=== PATIENT | male | born 1965 | race Caucasian/White ===

== ENCOUNTER 2017-12-14 06:21 | Day surgery (SDC) | payer BC ==
[~2017-12-14 06:21] MED LIST: ACETAMINOPHEN 1,000 MG/100 ML BTL IV ONE; CEFAZOLIN 2 Gram 2 GM/50 ML BAG IVPB ONE; FAMOTIDINE 20MG TABLET PO ONE; MECLIZINE 25 MG TABLET PO ONE; METOCLOPRAMIDE 10 MG TABLET PO ONE
[2017-12-14] MEDS ORDERED: CEFAZOLIN 1G VIAL IM ONE (06:22)
[2017-12-14] MEDS ORDERED: **ER** KETAMINE HCL 500MG/10ML VIAL IV ONE (06:22)
[2017-12-14] MEDS ORDERED: HYDROMORPHONE HCL 2 MG/ML VIAL IV ONE (06:22)
[2017-12-14] MEDS ORDERED: PROPOFOL 10 MG/ML VIAL IV ONE (06:22)
[2017-12-14] MEDS ORDERED: BUPIVACAINE 0.5% W/EPI MPF 30 ML VIAL IVP ONE (06:22)
[2017-12-14] MEDS ORDERED: OXYCODONE/APAP 10MG-325MG TABLET PO ONE (06:22)
[2017-12-14] MEDS ORDERED: 0.9 % SODIUM CHLORIDE 10 ML VIAL IVP ONE (06:22)
[2017-12-14] MEDS ORDERED: MIDAZOLAM HCL 2MG/2ML VIAL IV ONE (06:22)
[2017-12-14] MEDS ORDERED: LIDOCAINE 2% MDV (20MG/ML) 20ML VIAL IV ONE (06:22)
[2017-12-14] MEDS ORDERED: FENTANYL PF 100MCG/2ML VIAL IV ONE (06:22)
[2017-12-14] MEDS ORDERED: LIDOCAINE 1% W/EPI 1:200,000 MPF 30ML SQ ONE (06:22)
--- NOTE | 2017-12-14 06:26 | History and Physical - [facility] ---
CHIEF COMPLAINT/HISTORY OF CHIEF COMPLAINT: This patient presents with a history of intractable post lumbar laminectomy radiculopathy. Due to the failure of therapy a spinal cord stimulator trial was conducted with Dr. Slater with 75-85% pain control. Due to the failure of therapy and the success of stimulator trial he has been referred here for permanent implant. PAST MEDICAL HISTORY: Noncontributory. PAST SURGICAL HISTORY: Lumbar spinal surgery. MEDICATIONS ON ADMISSION: List to be provided. ALLERGIES: None listed. FAMILY/PSYCHOSOCIAL HISTORY: Social history - Smoking, social alcohol and caffeine. Family history - Coronary artery disease. SYSTEMS REVIEW: The patient seems appropriate in no acute distress. The remainder of the systems review is positive for contacts and difficulty sleeping. PHYSICAL EXAMINATION: Height is 6'1", weight is 250. No vital signs. HEENT: Within normal limits. LUNGS: Clear. HEART: Regular rate and rhythm. ABDOMEN: Nontender. MUSCULOSKELETAL: Examination of the musculoskeletal system shows diffuse tenderness throughout the lumbar spine. Range of motion does seem produce pain throughout the low back and extending into the hips and legs. His motor and sensory field functionality to the lower extremities is intact. There are no obvious deficits. No assistive device required for ambulation. NEUROLOGIC: Cranial nerves are intact. IMPRESSION: LUMBAR RADICULOPATHY, ICD-10 CODE M54.16 AND M54.17. PLAN: The patient is here for implantation of permanent spinal cord stimulator. The potential risks, side effect, and complications have all been carefully reviewed and discussed. The procedure will be considered outpatient although an overnight stay will be evaluation because of the traveling distance. JOB NUMBER: [id number] MTDD
--- NOTE | 2017-12-15 16:02 | Operative Note ---
DATE OF SURGERY: 12/14/2017. PREOPERATIVE DIAGNOSIS: LUMBAR RADICULOPATHY, ICD-10 CODE M54.16 AND M54.17. POSTOPERATIVE DIAGNOSIS: LUMBAR RADICULOPATHY, ICD-10 CODE M54.16 AND M54.17. OPERATION: 1. Fluoroscopically guided epidural access left T12-L1. Placement of spinal cord stimulator lead 1, Nevro octapolar, eight-electrode lead, positioned left midline at T8, upper endplate. 2. Fluoroscopically guided epidural access left T11-12. Placement of spinal cord stimulator lead 2, Nevro octapolar, eight-electrode lead, positioned right , upper electrode mid body T9. 3. Incision, subcutaneous dissection, and anchoring of lead 1 and lead 2 to the supraspinous fascia with a Nevro locking anchor. 4. Incision, subcutaneous dissection, and creation of subcutaneous pouch at right flank for placement of generator identified as Nevro programmable rechargeable generator. 5. Tunneling between pouches. Placement of external portion of lead 1 and lead 2 into generator pouch, each lead interfaced to the generator. 6. Placement of generator pouch. Placement of leads into pouch. 7. Closure of both incisions with Stratafix suture, #2-0 suture for the fascia , and #3-0 for the subcuticular. Dermabond closure. 8. The patient was transported to the recovery room stable with no side effects from the procedure or sedation. When fully awake and alert, complex programming in the recovery room was performed over 20 minutes. SURGEON: Kike Triana D.O. ANESTHESIA: ANESTHESIA PROVIDER: INDICATION: DESCRIPTION OF PROCEDURE: DISCHARGE INSTRUCTIONS: 1. The sites are to remain clean and dry. No showering or bathing in any way that would disrupt the dressings. If this happens, contact the clinic. 2. Standard medications to be resumed including Levaquin the antibiotic 500 mg once a day for 14 days. 3. The office will contact the patient at home to set up an appointment in seven to ten days to evaluate the sites. Until then, he is to keep his activities low and controlled. Limit bend, lift, push, and pull. 4. All other instructions were provided and numbers to contact with problems were given. He will be evaluated in the office. JOB NUMBER: [id number] cc: Dr. Bryon GARCIA
--- NOTE | 2017-12-16 20:28 | RADIOLOGY REPORT ---
EXAM: SPINE, 1 VIEW HISTORY: STIMULATOR PLACEMENT. TECHNIQUE: A single AP view of the lumbar spine was performed. FINDINGS: Stimulator lead tips are at T8 and T9 levels. IMPRESSION: STIMULATOR LEAD TIPS ARE AT THE T8 AND T9 LEVEL. JOB NUMBER: [id number] MTDD
== END 2017-12-14 09:55 | disposition home or self-care (01) ==
LOC: SUR 06:21
PROVIDERS: ATTEND Pain Medicine Interventional Pain Medicine
DX: M54.16 Radiculopathy, lumbar region (principal); M54.17 Radiculopathy, lumbosacral region; K21.9 Gastro-esophageal reflux disease without esophagitis; Z95.811 Presence of heart assist device; F12.90 Cannabis use, unspecified, uncomplicated
CPT/HCPCS: 63650; 63685; 01936; 85002; 72020; J3010; J1170; J0690; C1778; C1787; C1820